=== PATIENT | female | born 1980 | race Caucasian/White ===

== ENCOUNTER → 2018-01-29 | Outpatient (CLI) | payer OTHER | LOC: LAB 08:14 | PROVIDERS: ATTEND Obstetrics & Gynecology Reproductive Endocrinology | DX: Z01.812 Encounter for preprocedural laboratory examination (principal); Z11.3 Encounter for screening for infections with a predominantly sexual mode of transmission | CPT/HCPCS: 36415; 86592; 86703; 86705; 86803; 87340; 87491; 87591 ==